=== PATIENT | female | born 1975 ===

== ENCOUNTER → 2018-12-10 21:50 | Outpatient (REF) | payer OTHER, SELFPAY ==
[2018-12-11 00:45] LABS: Add Manual Diff / Slide Review NO; Basophils Absolute Auto 100 /uL (0-100); Basophils Percent Auto 0.9 % (0-2); Eosinophils Absolute Auto 200 /uL (0-450); Eosinophils Percent Auto 3.2 % (2-4); Hematocrit 40.3 % (36-46); Hemoglobin 13.6 g/dL (12.0-16.0); Lymphocytes Absolute Auto 1800 /uL (1100-4500); Lymphocytes Percent Auto 31.7 % (25-40); Mean Corpuscular HGB Conc 33.7 % (30-36); Mean Corpuscular Hemoglobin 30.2 PG (26-34); Mean Corpuscular Volume 89.6 fL (80-100); Monocytes Absolute Auto 400 /uL (0-900); Monocytes Percent Auto 7.1 % (3-14); Neutrophils Absolute Auto 3300 /uL (1500-7000); Neutrophils Percent Auto 57.1 % (50-75); Platelet Count 202 X10^3/uL (150-400); Red Cell Distribution Width 12.9 % (11.6-14.8); White Blood Cell Count 5.8 X10^3/uL (4.5-11.0)
[2018-12-11 02:00] LABS: HEMOLYSIS < 15 (0-50); Iron 142 ug/dL (37-170)
[2018-12-11 02:10] LABS: Alanine Aminotransferase 25 IU/L (9-52); Albumin 4.7 g/dL (3.5-5.0); Albumin Globulin Ratio 1.6 (1.0-2.8); Alkaline Phosphatase 103 U/L (38-126); Aspartate Aminotransferase 25 IU/L (14-36); BUN Creatinine Ratio 24.3 (6-22); Bilirubin Total 0.5 mg/dL (0.2-1.3); Blood Urea Nitrogen 17 mg/dL (7-17); Carbon Dioxide 28 mmol/L (22-32); Chloride 103 mmol/L (98-107); Estimated Glomerular Filt Rate > 60.0 mL/min (>60); Glucose 81 mg/dL (70-100); HEMOLYSIS < 15 (0-50); Potassium 4.3 mmol/L (3.4-5.1); Sodium 141 mmol/L (137-145); Total Protein 7.7 g/dL (6.3-8.2)
[2018-12-11 02:15] LABS: Percent Iron Saturation 34 % (15-50); Total Iron Binding Capacity 416 ug/dL (265-497); Transferrin 314 mg/dL (206-381)
[2018-12-11 02:20] LABS: Free T3, Triiodothyronine Free 4.14 pg/mL (2.77-5.27); Free T4, Direct Thyroxine 0.85 ng/dL (0.78-2.19)
[2018-12-11 02:38] LABS: Ferritin 12.3 ng/mL (6.27-137)
[2018-12-13 12:16] LABS: Progesterone < 0.5 ng/mL
[2018-12-13 15:05] LABS: C.albicans IgA 0.3; C.albicans IgG 0.4; C.albicans IgM 0.6 (<1.0)
[2018-12-14 15:20] LABS: EVB Early IgG < 9.00 U/mL (< 9.00)
== END ==
LOC: LAB 21:50
PROVIDERS: Visit Provider Acupuncturist
DX: R53.83 Other fatigue (principal); N92.6 Irregular menstruation, unspecified; E03.9 Hypothyroidism, unspecified
CPT/HCPCS: 36415; 80053; 82627; 82728; 83540; 83550; 84144; 84439; 84443; 84481; 84482; 85025; 86628; 86663